=== PATIENT | male | born 1935 | race Caucasian/White ===

== ENCOUNTER → 2017-09-11 | Outpatient (CLI) | payer MEDICARE, OTHER ==
[~2017-09-11] MED LIST: ALLERCLEAR10 MG PO; AMLODIPINE BESYL5 MG PO; ASPIR 8181 MG PO; AVODART0.5 MG PO; CALCIUM 600 +1 EAC1 PO; COLACE 100 MG100 MG PO; COLACE100 MG PO; DULERA 100 MCG/13 GM INH; FISH OIL 1,001000 M1 PO; GABAPENTIN 100100 MG PO; HYDROCODONE-AP1 EAC6 PO; MELOXICAM15 MG PO; MILK OF MA2400 MG/10 PO; MULTIVITAMINS PO; NORCO 5-325 TA1 EACH PO; OMEGA 3-6-9 CO1 EACH PO; ONE DAILY 50 P1 EAC1 PO; PACERONE100 MG PO; PEPCID20 MG PO; PERCOCET 5-3251 EACH PO; PRINIVIL10 MG PO; SIMVASTATIN40 MG PO; SINGULAIR 10 MG10 MG PO
[2017-09-11 13:34] LABS: ANION GAP 9 mmol/L (7-16); BUN 26 mg/dL (7-18); CALCIUM 8.8 mg/dL (8.5-10.1); CHLORIDE 104 mmol/L (98-107); CHOLESTEROL 118 mg/dL (<200); CO2 26 mmol/L (21-32); CREATININE 1.1 mg/dL (0.6-1.3); GLUCOSE 99 mg/dL (70-99); HDL CHOLESTEROL 53 mg/dL (>40); LDL CHOLESTEROL 5 mg/dL (<100); POTASSIUM 4.4 mmol/L (3.5-5.1); SODIUM 139 mmol/L (136-145); TC:HDL 2.2 Ratio (Not establshd); TRIGLYCERIDE 304 mg/dL (<150); VLDL 61 mg/dL (<40)
[2017-09-11 13:41] LABS: SERUM ASSESSMENT Moderate Lipemia
[2017-09-11 21:07] LABS: LDL (DIRECT) CHOL 60 mg/dL (0-99)
== END ==
LOC: M.LAB 13:03
PROVIDERS: Internal Medicine Cardiovascular Disease
DX: I48.91 Unspecified atrial fibrillation (principal); E78.5 Hyperlipidemia, unspecified

== ENCOUNTER 2017-11-08 22:18 | Inpatient (IN) | payer MEDICARE, OTHER ==
[~2017-11-08] VITALS: Ht 182.9 cm; Wt 103.9 kg
[~2017-11-08 22:18] MED LIST changes: -PACERONE100 MG PO; -PEPCID20 MG PO; -PRINIVIL10 MG PO
[2017-11-08 22:20] VITALS: BP 209/95
[2017-11-08] MEDS ORDERED: PACERONE100 MG PO (22:35)
[2017-11-08 23:01] LABS: ABSOLUTE BASOPHILS 0.1 thou/uL (0.0-0.2); ABSOLUTE EOSINOPHILS 0.2 thou/uL (0.0-0.7); ABSOLUTE LYMPHOCYTES 2.9 thou/uL (0.8-5.3); ABSOLUTE NEUTROPHILS 4.5 thou/uL (1.6-8.1); BASOPHILS 0.6 %; EOSINOPHILS 2.4 %; HEMATOCRIT 48.2 % (42.0-52.0); HEMOGLOBIN 16.1 gm/dL (14.0-18.0); LYMPHOCYTES 33.5 %; MCH 29.5 pg (26.0-34.0); MCHC 33.4 g/dL (28.0-37.0); MCV 88.2 fL (80.0-100.0); MPV 8.3 fl. (7.2-11.1); NUCLEATED RBCS 0 /100WBC; PLATELET COUNT* 182 thou/uL (150-400); POLYS 52.5 %; RBC 5.46 mil/uL (4.50-6.00); RDW-CV 14.4 % (10.5-14.5); WBC 8.6 thou/uL (4.0-11.0)
[2017-11-08 23:14] LABS: ANION GAP 4 mmol/L (7-16); BUN 21 mg/dL (7-18); CALCIUM 9.1 mg/dL (8.5-10.1); CHLORIDE 104 mmol/L (98-107); CO2 28 mmol/L (21-32); CREATININE 1.2 mg/dL (0.6-1.3); GLUCOSE 113 mg/dL (70-99); POTASSIUM 4.7 mmol/L (3.5-5.1); SODIUM 136 mmol/L (136-145)
[2017-11-08 23:17] LABS: INR 1.1; PROTIME 10.5 Seconds (9.20-11.50)
[2017-11-08 23:25] LABS: ALBUMIN 3.3 g/dL (3.4-5.0); ALKALINE PHOSPHATASE 93 U/L (46-116); LIPASE 98 U/L (73-393); NT-PRO BRAIN NAT PEPTIDE 242 pg/mL (<300); SGOT 20 U/L (15-37); SGPT 36 U/L (30-65); TOTAL BILIRUBIN 0.9 mg/dL (<0.1-1.0); TOTAL PROTEIN 6.8 g/dL (6.4-8.2); TROPONIN-I LEVEL <0.06 ng/mL (<0.06)
[2017-11-09] VITALS (7 sets, daily range): BP systolic 136–176; BP diastolic 65–86
--- NOTE | 2017-11-09 18:38 | EXE ---
[place] [address] STRESS ECHOCARDIOGRAM Name: SONAL GRIFFITH Room: [address]#: [id number] Admission: 11/08/17 Attend Phys: Cole Amaral, Discharge: Date of : 39 Date of Service: 11/09/17 1837 Report #: [id number] THIS REPORT FOR: //name// APPROVED REPORT Study performed: 11/09/2017 15:26:16 Exam: Dobutamine Stress Echo Indication: Chest pain , CAD ,CABG Patient Location: In-Patient Stress Nurse: Angie Shelton RN Room #: [facility] Supervising Physician: John Hendricks MD Status: routine Ht: 6 ft 0 in HR: 51 bpm BP: 140/72 mmHg Medical History Cardiac Risk Factors: Hyperlipidemia, HTN,PVD Procedure The patient underwent a Pharmacological Stress Test using Dobutamine. Blood pressure, heart rate, and EKG were monitored. An Echocardiogram was performed by urgent care technician in four stages in quad fashion. At peak stress, four selected images were obtained and placed side by side with resting images for comparison. Stress Test Details Stress Test: Pharmacological Stress Test using Dobutamine. Reason for pharmacologic stress test: physical limitation. HR Resting HR: 51 bpm Max Heart Rate (APMHR): 141 bpm Max HR Achieved: 141 bpm Target HR (85% APMHR): 119 bpm % of APMHR: 100 Recovery HR: 98 bpm HR response to stress: Normal HR response to stress BP Resting BP: 140/72 mmHg Max BP: 191/60 mmHg Recovery BP: 154/73 [place] [address] STRESS ECHOCARDIOGRAM Name: SONAL GRIFFITH Room: [address]#: [id number] Admission: 11/08/17 Attend Phys: Cole Amaral, Discharge: Date of : 39 Date of Service: 11/09/171836 Report #: [id number] Pre-Stress Echo The resting Echocardiogram showed normal left ventricular contractility with an estimated Ejection Fraction of about 55-60%. Normal wall motion in all segments on baseline images. Post-Stress Echo The stress Echocardiogram showed normal left ventricular contractility with an estimated Ejection Fraction of about >70%. Normal augmentation of wall motion in all segments on post stress images. Conclusion Clinical Response: Non-ischemic Stress ECG Response: Non-ischemic Stress Echo Images: Non-ischemic Other Information Study Quality: Good <ELECTRONICALLY SIGNED> By: John Hendricks MD, [facility] 11/09/171836 36 1837 John Hendricks MD, FACC /INF
[2017-11-10] VITALS: BP 151/73
[2017-11-10 04:00] VITALS: BP 154/65
[2017-11-10 08:00] VITALS: BP 155/81
[2017-11-10] MEDS ORDERED: PRINIVIL10 MG PO (11:05)
[2017-11-10] MEDS ORDERED: PEPCID20 MG PO (11:33)
[2017-11-10 11:42] VITALS: BP 155/81
[2017-11-10 12:42] VITALS: BP 155/81
--- NOTE | 2017-11-10 13:32 | EKG ---
[place] [address] ELECTROCARDIOGRAM REPORT Name: SONAL GRIFFITH Room: [address] IN [facility]#: [id number] Admission: 11/08/17 Attend Phys: Cole Amaral MD Discharge: Date of : 39 Report #: [id number] THIS REPORT FOR: //name// [facility] ED Test Date: 2017-11-08 Test Time: 22:24:24 Pat Name: SONAL GRIFFITH Department: Room: Gender: Special Delivery Mail Carrier: DAYANMT. [facility] : 1935 Requested By: Brayan Peters Order Number: [id number] MD: Ken Del Rosario Measurements Intervals [place] Rate: 61 P: 57 CT: 192 QRS: 84 QRSD: 108 T: 10 QT: 467 QTc: 471 Interpretive Statements Sinus rhythm Ventricular premature complex Consider right ventricular hypertrophy Compared to ECG 08/04/2013 08:36:20 ST (T wave) deviation no longer present Electronically Signed On 11-10-2017 13:32:12 CDT by Ken Del Rosario [email or web address] <ELECTRONICALLY SIGNED> By: Ken Del Rosario MD, FACC 11/10/17 1332 2224 2224 Ken Del Rosario MD, [facility] /EPI
--- NOTE | 2017-11-10 13:36 | EKG ---
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: : 1935 Requested By: Cole Amaral Order Number: [id number] Reading MD: Ken Del Rosario Measurements Intervals [place] Rate: 50 P: -14 NV: 216 QRS: 89 QRSD: 107 T: 16 QT: 510 QTc: 466 Interpretive Statements Sinus rhythm Borderline prolonged NV interval Borderline right axis deviation Borderline T abnormalities, inferior leads Compared to ECG 08/04/2013 08:36:20 T-wave abnormality now present Ventricular premature complex(es) no longer present ST (T wave) deviation no longer present Electronically Signed On 11-10-2017 13:36:18 CDT by Ken Del Rosario [email or web address] <ELECTRONICALLY SIGNED> By: Ken Del Rosario MD, FAC 11/10/17 1336 0633 0633 Ken Del Rosario MD, FAC /EPI
== END 2017-11-10 13:30 | disposition home or self-care (01) | DRG 392 ==
LOC: M.ERS 22:18 → M.2W 23:33 → M.TBA-ER 23:33 → M.2W 11-09 00:10
PROVIDERS: Emergency Medicine; ADMIT Internal Medicine
DX: K21.9 Gastro-esophageal reflux disease without esophagitis (principal); I16.1 Hypertensive emergency; R07.9 Chest pain, unspecified; I10 Essential (primary) hypertension; J44.9 Chronic obstructive pulmonary disease, unspecified; H91.90 Unspecified hearing loss, unspecified ear; Z96.643 Presence of artificial hip joint, bilateral; Z96.611 Presence of right artificial shoulder joint; Z95.2 Presence of prosthetic heart valve; Z87.891 Personal history of nicotine dependence; Z79.899 Other long term (current) drug therapy

== ENCOUNTER → 2019-11-02 | Outpatient (CLI) | payer MEDICARE, OTHER ==
[~2019-11-02] MED LIST changes: +PACERONE100 MG PO; +PEPCID20 MG PO; +PRINIVIL10 MG PO
== END ==
LOC: M.WC 03:25
PROVIDERS: ATTEND Surgery
DX: L97.212 Non-pressure chronic ulcer of right calf with fat layer exposed (principal); I89.0 Lymphedema, not elsewhere classified; I48.20 Chronic atrial fibrillation, unspecified; I10 Essential (primary) hypertension; I87.8 Other specified disorders of veins; G62.9 Polyneuropathy, unspecified; E66.9 Obesity, unspecified; J44.9 Chronic obstructive pulmonary disease, unspecified; Z95.4 Presence of other heart-valve replacement; Z87.891 Personal history of nicotine dependence; Z68.29 Body mass index [BMI] 29.0-29.9, adult

== ENCOUNTER → 2019-11-09 | Outpatient (CLI) | payer MEDICARE, OTHER | LOC: M.WC 04:56 | PROVIDERS: ATTEND Surgery | DX: L97.211 Non-pressure chronic ulcer of right calf limited to breakdown of skin (principal); I89.0 Lymphedema, not elsewhere classified; I87.8 Other specified disorders of veins; I48.20 Chronic atrial fibrillation, unspecified; I10 Essential (primary) hypertension; G62.9 Polyneuropathy, unspecified; E66.9 Obesity, unspecified; J44.9 Chronic obstructive pulmonary disease, unspecified; Z87.891 Personal history of nicotine dependence; Z68.29 Body mass index [BMI] 29.0-29.9, adult ==

== ENCOUNTER → 2019-11-16 | Outpatient (CLI) | payer MEDICARE, OTHER | LOC: M.WC 03:24 | PROVIDERS: ATTEND Surgery | DX: L97.211 Non-pressure chronic ulcer of right calf limited to breakdown of skin (principal); L97.821 Non-pressure chronic ulcer of other part of left lower leg limited to breakdown of skin; I89.0 Lymphedema, not elsewhere classified; I87.8 Other specified disorders of veins; I48.20 Chronic atrial fibrillation, unspecified; I10 Essential (primary) hypertension; G62.9 Polyneuropathy, unspecified; E66.9 Obesity, unspecified; J44.9 Chronic obstructive pulmonary disease, unspecified; Z87.891 Personal history of nicotine dependence; Z68.29 Body mass index [BMI] 29.0-29.9, adult; Z79.01 Long term (current) use of anticoagulants ==

== ENCOUNTER → 2019-11-23 | Outpatient (CLI) | payer MEDICARE, OTHER | LOC: M.WC 05:11 | PROVIDERS: ATTEND Surgery | DX: L97.211 Non-pressure chronic ulcer of right calf limited to breakdown of skin (principal); L97.821 Non-pressure chronic ulcer of other part of left lower leg limited to breakdown of skin; G62.9 Polyneuropathy, unspecified; E66.9 Obesity, unspecified; I48.91 Unspecified atrial fibrillation; I10 Essential (primary) hypertension; I87.8 Other specified disorders of veins; I89.0 Lymphedema, not elsewhere classified; I48.20 Chronic atrial fibrillation, unspecified; J44.9 Chronic obstructive pulmonary disease, unspecified; Z87.891 Personal history of nicotine dependence; Z79.01 Long term (current) use of anticoagulants; Z68.29 Body mass index [BMI] 29.0-29.9, adult ==

== ENCOUNTER → 2019-11-30 | Outpatient (CLI) | payer MEDICARE, OTHER | LOC: M.WC 08:59 | PROVIDERS: ATTEND Surgery | DX: L97.218 Non-pressure chronic ulcer of right calf with other specified severity (principal); I89.0 Lymphedema, not elsewhere classified; I48.20 Chronic atrial fibrillation, unspecified; I10 Essential (primary) hypertension; I87.8 Other specified disorders of veins; E66.9 Obesity, unspecified; G62.9 Polyneuropathy, unspecified; J44.9 Chronic obstructive pulmonary disease, unspecified; Z87.891 Personal history of nicotine dependence; Z79.01 Long term (current) use of anticoagulants; Z68.29 Body mass index [BMI] 29.0-29.9, adult ==

== ENCOUNTER 2021-02-11 11:00 | Emergency (ER) | payer MEDICARE, OTHER ==
[~2021-02-11] VITALS: Ht 182.9 cm; Wt 103.9 kg
[2021-02-11] MEDS ORDERED: MELOXICAM15 MG PO (11:15)
[2021-02-11] MEDS ORDERED: FUROSEMIDE 40 M40 MG PO (11:15)
[2021-02-11] MEDS ORDERED: ATORVASTATIN CA80 MG PO (11:15)
[2021-02-11] MEDS ORDERED: ELIQUIS5 MG PO (11:15)
[2021-02-11] MEDS ORDERED: TRELEGY ELLIPT1 EACH INH (11:16)
[2021-02-11 13:17] VITALS: BP 135/59
== END 2021-02-11 13:18 | disposition home or self-care (01) ==
LOC: M.ERS 11:00
DX: M25.552 Pain in left hip (principal); J44.9 Chronic obstructive pulmonary disease, unspecified; I10 Essential (primary) hypertension; Z79.899 Other long term (current) drug therapy; Z87.891 Personal history of nicotine dependence; Z96.643 Presence of artificial hip joint, bilateral

== ENCOUNTER 2021-04-07 05:43 | Inpatient (IN) | payer MEDICARE, OTHER ==
[~2021-04-07] VITALS: Ht 180.3 cm; Wt 105.0 kg
[2021-04-07] VITALS (7 sets, daily range): BP systolic 120–190; BP diastolic 50–78
[~2021-04-07 05:43] MED LIST changes: +ATORVASTATIN CA80 MG PO; +ELIQUIS5 MG PO; +FUROSEMIDE 40 M40 MG PO; +TRELEGY ELLIPT1 EACH INH
[2021-04-07 06:15] LABS: ABSOLUTE EOSINOPHILS 0.1 thou/uL (0.0-0.7); ABSOLUTE LYMPHOCYTES 1.2 thou/uL (0.8-5.3); ABSOLUTE MONOCYTES 1.5 thou/uL (0.0-1.2); ABSOLUTE NEUTROPHILS 7.1 thou/uL (1.6-8.1); BASOPHILS 0.5 %; EOSINOPHILS 1.4 %; HEMATOCRIT 41.1 % (42.0-52.0); HEMOGLOBIN 13.8 gm/dL (14.0-18.0); MCH 29.7 pg (26.0-34.0); MCHC 33.6 g/dL (28.0-37.0); MCV 88.6 fL (80.0-100.0); MONOCYTES 14.6 %; MPV 7.6 fl. (7.2-11.1); NUCLEATED RBCS 0 /100WBC; PLATELET COUNT* 234 thou/uL (150-400); POLYS 71.5 %; RBC 4.64 mil/uL (4.50-6.00); RDW-CV 14.8 % (10.5-14.5)
[2021-04-07 06:23] LABS: CALCIUM 9.1 mg/dL (8.5-10.1); CREATININE 1.4 mg/dL (0.6-1.3)
[2021-04-07 11:01] LABS: URINE BILIRUBIN NEGATIVE (Negative); URINE BLOOD 2+ (Negative); URINE CLARITY SL CLOUDY; URINE COLOR YELLOW; URINE GLUCOSE-RANDOM NEGATIVE (Negative); URINE KETONES NEGATIVE (Negative); URINE PROTEIN 1+ (Negative); URINE UROBILINOGEN 0.2 E.U./dl (0.2-1.0)
[2021-04-07 11:02] LABS: URINE LEUKOCYTES-REFLEX 2+ (Negative); URINE NITRITE-REFLEX POSITIVE (Negative)
[2021-04-07 11:19] LABS: CASTS None Seen /LPF (None Seen); SQUAMOUS 0-3 Few /LPF (0-3); URINE RBC >20 Many /HPF (0-2); URINE WBC-REFLEX >25 Many /HPF (0-5)
[2021-04-07 11:21] LABS: CRYSTALS None Seen /LPF (None Seen)
--- NOTE | 2021-04-07 13:58 | EKG ---
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 : 1935 Requested By: Saida Abel Order Number: [id number] Reading MD: Andrew Parker Measurements Intervals [place] Rate: 77 P: 65 MD: 220 QRS: 84 QRSD: 122 T: 40 QT: 531 QTc: 602 Interpretive Statements Sinus rhythm Atrial premature complexes Prolonged MD interval Borderline intraventricular conduction delay Borderline T abnormalities, anterior leads Compared to ECG 11/09/2017 06:33:49 Atrial premature complex(es) now present Intraventricular conduction delay now present T-wave abnormality still present Electronically Signed On 04-07-2021 13:57:50 [employer] by Andrew Parker [email or web address] <ELECTRONICALLY SIGNED> By: Andrew Parker MD, FACC 04/07/21 1357 1043 1043 Andrew Parker MD, FAC /EPI
[2021-04-08] VITALS: BP 114/62
[2021-04-08 04:00] VITALS: BP 142/61
[2021-04-08 04:49] LABS: HEMATOCRIT 38.6 % (42.0-52.0); HEMOGLOBIN 12.8 gm/dL (14.0-18.0); MCH 29.6 pg (26.0-34.0); MCHC 33.2 g/dL (28.0-37.0); MCV 89.3 fL (80.0-100.0); MPV 8.3 fl. (7.2-11.1); RBC 4.32 mil/uL (4.50-6.00); RDW-CV 15.3 % (10.5-14.5); WBC 9.9 thou/uL (4.0-11.0)
[2021-04-08 04:57] LABS: ALBUMIN 2.1 g/dL (3.4-5.0); CALCIUM 8.9 mg/dL (8.5-10.1); CREATININE 1.4 mg/dL (0.6-1.3); MAGNESIUM 2.2 mg/dL (1.8-2.4); POTASSIUM 3.6 mmol/L (3.5-5.1); TOTAL BILIRUBIN 1.1 mg/dL (<0.1-1.0)
[2021-04-08 04:58] LABS: APTT 31.4 Seconds (25.0-31.3); PROTIME 10.7 Seconds (9.20-11.50)
[2021-04-08 08:00] VITALS: BP 124/75
[2021-04-08 11:30] VITALS: BP 124/61
[2021-04-08 20:20] VITALS: BP 128/62
[2021-04-09 05:23] LABS: HEMATOCRIT 37.1 % (42.0-52.0); HEMOGLOBIN 12.6 gm/dL (14.0-18.0); MCH 29.8 pg (26.0-34.0); MCHC 33.8 g/dL (28.0-37.0); MPV 8.3 fl. (7.2-11.1); RBC 4.22 mil/uL (4.50-6.00); RDW-CV 14.8 % (10.5-14.5); WBC 9.7 thou/uL (4.0-11.0)
[2021-04-09 05:34] LABS: APTT 28.8 Seconds (25.0-31.3); PROTIME 10.6 Seconds (9.20-11.50)
[2021-04-09 05:42] LABS: ALBUMIN 2.1 g/dL (3.4-5.0); CALCIUM 8.5 mg/dL (8.5-10.1); CREATININE 1.3 mg/dL (0.6-1.3); MAGNESIUM 2.2 mg/dL (1.8-2.4); POTASSIUM 3.4 mmol/L (3.5-5.1); TOTAL PROTEIN 6.2 g/dL (6.4-8.2)
[2021-04-09 08:00] VITALS: BP 148/70
[2021-04-09 15:53] VITALS: BP 139/60
[2021-04-09 20:20] VITALS: BP 134/60
[2021-04-10 06:43] LABS: HEMATOCRIT 39.4 % (42.0-52.0); HEMOGLOBIN 13.2 gm/dL (14.0-18.0); MCH 29.4 pg (26.0-34.0); MCHC 33.6 g/dL (28.0-37.0); MCV 87.6 fL (80.0-100.0); RBC 4.5 mil/uL (4.50-6.00); RDW-CV 14.7 % (10.5-14.5); WBC 9.2 thou/uL (4.0-11.0)
[2021-04-10 07:15] VITALS: BP 165/76
[2021-04-10 07:23] LABS: CALCIUM 8.6 mg/dL (8.5-10.1); CREATININE 1.2 mg/dL (0.6-1.3); POTASSIUM 3.6 mmol/L (3.5-5.1)
[2021-04-10 07:45] VITALS: BP 164/59
[2021-04-10 09:19] VITALS: BP 115/58
[2021-04-10 12:07] VITALS: BP 128/47
--- NOTE | 2021-04-10 13:20 | EKG ---
[place] [address] ELECTROCARDIOGRAM REPORT Name: SONAL GRIFFITH Room: [address] ADM IN [facility].#: [id number] Admission: 04/07/21 Attend Phys: Saida Abel, Discharge: Date of : 39 Date of Service: 04/10/21 0629 Report #: [id number] THIS REPORT FOR: //name// [facility] Test Date: 2021-04-10 Test Time: 06:29:53 Pat Name: SONAL GRIFFITH Department: Room: [address] Gender: M Regulated Program Manager: KIESHA : 1935 Requested By: Saida Abel Order Number: [id number] Reading MD: Rip Zuñiga Measurements Intervals [place] Rate: 59 P: 52 WI: 196 QRS: 84 QRSD: 111 T: 28 QT: 636 QTc: 631 Interpretive Statements Sinus arrhythmia Borderline right axis deviation Borderline T abnormalities, inferior leads Prolonged QT interval Baseline wander in lead(s) I,II,aVR Compared to ECG 04/07/2021 10:43:09 Prolonged QT interval now present First degree AV block no longer present T-wave abnormality still present Electronically Signed On 04-10-2021 13:20:35 CARD HAND by Rip Zuñiga [email or web address] <ELECTRONICALLY SIGNED> By: Rip Zuñiga MD, [facility] 04/10/21 1320 0629 Rip Zuñiga MD, [facility] /EPI
[2021-04-10 15:43] VITALS: BP 130/51
[2021-04-10 20:00] VITALS: BP 144/64
[2021-04-11 00:22] VITALS: BP 101/47
[2021-04-11 04:08] VITALS: BP 117/64
[2021-04-11 08:00] VITALS: BP 135/63
[2021-04-11 11:38] VITALS: BP 123/58
[2021-04-11 15:48] VITALS: BP 113/58
[2021-04-11 20:50] VITALS: BP 137/59
[2021-04-12 08:16] VITALS: BP 127/55
[2021-04-12 08:58] VITALS: BP 127/55
[2021-04-12] MEDS ORDERED: MACROBID 100 M100 M1 PO (13:18)
[2021-04-12] MEDS ORDERED: ELIQUIS5 MG PO (13:18)
== END 2021-04-12 18:37 | DRG 516 ==
LOC: M.ERS 05:43 → M.ORTHSURG 07:31 → M.TBA-ER 07:31 → M.3W 07:31 → M.TBA-ER 13:46 → M.ORTHSURG 18:05 → M.3W 04-08 16:21
PROVIDERS: Emergency Medicine; Internal Medicine; ADMIT Internal Medicine; ATTEND Internal Medicine
PROC: 0QS03ZZ Reposition Lumbar Vertebra, Percutaneous Approach (ICD-10-PCS; principal; 2021-04-10)
PROC: 0QU03JZ Supplement Lumbar Vertebra with Synthetic Substitute, Percutaneous Approach (ICD-10-PCS; principal; 2021-04-10)
DX: S32.049A Unspecified fracture of fourth lumbar vertebra, initial encounter for closed fracture (principal); N17.9 Acute kidney failure, unspecified; N39.0 Urinary tract infection, site not specified; I48.20 Chronic atrial fibrillation, unspecified; E11.21 Type 2 diabetes mellitus with diabetic nephropathy; Z96.643 Presence of artificial hip joint, bilateral; Z96.611 Presence of right artificial shoulder joint; J44.9 Chronic obstructive pulmonary disease, unspecified; G89.29 Other chronic pain; M54.50 Low back pain, unspecified; B96.89 Other specified bacterial agents as the cause of diseases classified elsewhere; E11.22 Type 2 diabetes mellitus with diabetic chronic kidney disease; M19.90 Unspecified osteoarthritis, unspecified site; I12.9 Hypertensive chronic kidney disease with stage 1 through stage 4 chronic kidney disease, or unspecified chronic kidney disease; Z20.822 Contact with and (suspected) exposure to COVID-19; N18.30 Chronic kidney disease, stage 3 unspecified; Z95.2 Presence of prosthetic heart valve; Z87.891 Personal history of nicotine dependence; W18.39XA Other fall on same level, initial encounter; Y93.89 Activity, other specified; Y92.89 Other specified places as the place of occurrence of the external cause; Y99.8 Other external cause status

== ENCOUNTER 2021-04-12 15:11 | Inpatient (IN) | payer MEDICARE, OTHER ==
[~2021-04-12] VITALS: Ht 180.3 cm; Wt 100.3 kg
[~2021-04-12 15:11] MED LIST changes: +MACROBID 100 M100 M1 PO
[2021-04-12 19:15] VITALS: BP 125/55
--- NOTE | 2021-04-12 20:55 | NUR ---
AWAKENED TO COMPLETE REHAB ADMISSION. PATIENT ALERT AND ORIENTED X 4. VERY HARD OF HEARING. HEARING AIDS CHARGING. VOIDED YELLOW URINE PER URINAL. CALL LIGHT WITHIN REACH. DENIES PAIN. WHEN WOKE PATIENT UP HE BECAME SHORT OF BREATH AND HAD PRONOUNCED AUDIBLE WHEEZES WHICH EVENTUALLY SUBSIDED.
[2021-04-13 04:04] LABS: HEMATOCRIT 37.5 % (42.0-52.0); HEMOGLOBIN 12.6 gm/dL (14.0-18.0); MCH 29.6 pg (26.0-34.0); MCHC 33.6 g/dL (28.0-37.0); MCV 88.2 fL (80.0-100.0); MPV 7.9 fl. (7.2-11.1); RBC 4.25 mil/uL (4.50-6.00); RDW-CV 14.7 % (10.5-14.5); WBC 9.4 thou/uL (4.0-11.0)
[2021-04-13 04:33] LABS: CALCIUM 8.8 mg/dL (8.5-10.1); CREATININE 1.4 mg/dL (0.6-1.3); POTASSIUM 3.7 mmol/L (3.5-5.1)
--- NOTE | 2021-04-13 04:56 | NUR ---
RESTED ON/OFF. ASKED FOR SOMETHING STRONGER THAN TYLENOL FOR COMPLAINT OF BACK PAIN. OBTAINED AN ORDER FOR HYDROCODONE. WENT TO ASK PATIENT IF HE STILL WANTED A PAIN PILL AND HE WAS SLEEPING SOUNDLY. USED URINAL DURING THE NIGHT. HOURLY ROUNDING IN PROGRESS.
[2021-04-13 08:02] VITALS: BP 144/61
--- NOTE | 2021-04-13 17:32 | NUR ---
PT UP WITH GAIT BELT AND WALKER AND X1 ASST. PT COMPLETED ALL THERAPY. PT IS ON 2L 02.PT DOES HAVE PROC COUGH. PT HAS RT SCAB ON ELBOW AND RT SKIN TEAR ON FOREARM WITH STERI STRIPS, RT SIDE SORE ON BUTTOCK. PT TAKES PAIN MED FOR PAIN. PT HAD ARTERIAL DOPPLER TODAY ORDERED BY DR HUSSEIN, TEST WAS NEG. PT IS RESTING IN BED WATCHING TV WITH CALL LIGHT IN REACH AND FALL PRECAUTIONS IN PLACE.
[2021-04-13 20:00] VITALS: BP 109/56
--- NOTE | 2021-04-14 04:58 | NUR ---
ASSUMED PT CARE AT 1930. PT ALERT AND ORIENTED X4, POLITE AND COOPERATIVE WITH CARES. PT RESTING IN BED AT SHIFT CHANGE. WEARING 2L 02 PER NC. SCAB TO RIGHT ELBOW, STERISTRIPS TO RT FOREARM SKIN TEAR INTACT. DRESSING TO RIGHT BUTTOCK C/D/I. PRN PAIN MEDICATION X1 PER PT REQUEST. TAKES PILLS WHOLE WITH WATER WITHOUT DIFFICULTY. USED URINAL OVERNIGHT. CALL LIGHT IN REACH, BED ALARM ON FOR SAFETY. HOURLY ROUNDING IN PROGRESS, WILL CONTINUE TO MONITOR.
[2021-04-14 07:54] VITALS: BP 110/64
--- NOTE | 2021-04-14 17:02 | NUR ---
PT UP WITH GAIT BELT AND WALKER AND 1X ASST. PT IS ON 2L 02. PT HAD CHEST X-RAY DUE TO WHEEZING, NEG FOR PNEUMONIA. PT ORDERED MUCINEX BID BY DR ROSE. PT TAKES PAIN MEDS FOR BACK PAIN. PT HAD BM THIS SHIFT. PT IS RESTING IN BED WATCHING TV WITH CALL LIGHT IN REACH AND FALL PRECAUTIONS IN PLACE.
[2021-04-14 19:32] VITALS: BP 136/69
--- NOTE | 2021-04-14 19:35 | NUR ---
SLEEPING QUIETLY IN BED. OXYGEN NASAL CANNULA AT TWO LITERS. OXYGEN SATURATION 96%. URINAL AND CALL LIGHT WITHIN REACH.
--- NOTE | 2021-04-15 05:20 | NUR ---
RESTED QUIETLY. USED URINAL DURING THE NIGHT. CURRENTLY SITTING UP IN BED WATCHING THE MORNING LOCAL NEWS. HOURY ROUNDING IN PROGRESS.
[2021-04-15 08:20] VITALS: BP 154/68
--- NOTE | 2021-04-15 09:55 | NUR ---
Nutrition: Pt admitted to rehab with L4 compression FX. H/o COPD, afib, HTN, arthritis. Alb 2.1, prealb 16.5. Wt variable, will use current wt to calculate any needs. Regular diet. Spoke with RN, pt eating well. Low risk.
--- NOTE | 2021-04-15 17:09 | NUR ---
ALERT AND ORIENTED X4. UP WITH 1 ASSIST, GAIT BELT AND WALKER. DENIES PAIN. CONTINENT OF BOWEL AND BLADDER. HAS DRY AND INTACT DRESSING ON RIGHT BUTTOCK. STERI STRIPS IN PLACE OVER RIGHT ARM SKIN TEAR. REMAINS ON O2 AT 2L/NC TO KEEP O2 SATS IN 90'S. USES CALL LIGHT FOR ASSIST. FALL PRECAUTIONS IN PLACE. TAKES PILLS WITHOUT DIFFICULTY.
[2021-04-15 19:00] VITALS: BP 94/70
--- NOTE | 2021-04-16 05:12 | NUR ---
ASSUMED PT CARE AT 1930. PT ALERT AND ORIENTED X4, POLITE AND COOPERATIVE WITH CARES. PT ALREADY IN BED AT SHIFT CHANGE. DENIES PAIN. VERY [place]. TAKES PILLS WHOLE WITH WATER WITHOUT DIFFICULTY. PRN PAIN MEDICATION AT HS. USED URINAL OVERNIGHT. CALL LIGHT IN REACH, BED ALARM ON FOR SAFETY. HOURLY ROUNDING IN PROGRESS, WILL CONTINUE TO MONITOR.
[2021-04-16 08:08] VITALS: BP 167/71
--- NOTE | 2021-04-16 16:36 | NUR ---
PATIENT COMPLETED THERAPIES THIS SHIFT ORDERED. UP WITH ASSISTANCE; GAIT BELT AND WALKER, [address] PRN HYDROCODONE GIVEN X 2 FOR BACK PAIN. VOIDING PER URINAL. TEAM MEETING TOMORROW, AM LABS.
--- NOTE | 2021-04-16 16:36 | NUR ---
INITIAL ASSESSMENT: PATIENT ADMITTED TO [facility] ON 04/12/21 WITH A DIAGNOSIS OF L4 COMPRESSION FX. PRIOR TO ADMIT PT RESIDED AT HOME ALONE. PT USED A WALKER FOR MOBILITY, BUT ALSO OWNED A CANE. PT HAS PAST HX OF HH. PT ALSO HAS PAST HX OF SNF AT [facility]. PT'S DTR INFORMS THAT THE PT'S HOME HAS STEPS TO THE BASEMENT. PT'S DTE INFORMS THAT SHE HAS PURCHASED A LIFT CHAIR AND IT WILL BE DELIVERED TO THE HOME NEXT WEEK. CM ORIENTED THE PT AND HIS DTR TO THE [facility] AND PROCESSES, RESIDENTS RIGHTS INFO, TEAM CONFRENCE, AND TO THE ROLE OF CM. CM WILL REMAIN AVAILABLE TO ASSIST AND FOLLOW NEEDED.
[2021-04-16 19:00] VITALS: BP 146/67
[2021-04-17 04:50] LABS: HEMATOCRIT 37.5 % (42.0-52.0); HEMOGLOBIN 12.6 gm/dL (14.0-18.0); MCH 29.5 pg (26.0-34.0); MCHC 33.6 g/dL (28.0-37.0); MCV 87.7 fL (80.0-100.0); MPV 7.7 fl. (7.2-11.1); RBC 4.28 mil/uL (4.50-6.00); RDW-CV 14.7 % (10.5-14.5); WBC 13.2 thou/uL (4.0-11.0)
[2021-04-17 04:56] LABS: CALCIUM 8.6 mg/dL (8.5-10.1); CREATININE 1.3 mg/dL (0.6-1.3); POTASSIUM 3.5 mmol/L (3.5-5.1)
--- NOTE | 2021-04-17 05:45 | NUR ---
ASSUMED CARES AT 1920. ALERT AND ORIENTED. PLEASANT. O2 2L NC. USED URINAL. SLEPT OFF AND ON. CALL LIGHT IN REACH AND BED ALARM ON.
[2021-04-17 07:42] VITALS: BP 142/65
--- NOTE | 2021-04-17 17:03 | NUR ---
PATIENT COMPLETED THERAPIES THIS SHIFT ORDERED. UP WITH ASSISTANCE; GAIT BELT AND WALKER/02. DR. GUILLEN NOTIFIED OF ELEVATED WBC, CXR ORDERED AND AWAITING TO BE DONE AND LAB FOR AM. PRN VICODIN GIVEN FOR BACK PAIN X [address] LIDOCAINE PATCH IN PLACE TO LEFT RIBS. DRESSING REPLACED TO RIGHT BUTTOCK.
[2021-04-17 20:00] VITALS: BP 161/81
--- NOTE | 2021-04-18 06:08 | NUR ---
ASSUMED CARE AT 1920. ALERT AND ORIENTED. PLEASANT. NORCO GIVEN NEEDED FOR LEFT RIB PAIN. O2 2L NC. MIN ASSIST WITH GAIT BELT AND WALKER. UP TO BR OR USED URINAL. SLEPT MOST OF THE NIGHT. CALL LIGHT IN REACH AND BED ALARM ON.
[2021-04-18 07:54] VITALS: BP 150/71
[2021-04-18 12:35] LABS: URINE BILIRUBIN NEGATIVE (Negative); URINE BLOOD NEGATIVE (Negative); URINE CLARITY CLEAR; URINE COLOR YELLOW; URINE GLUCOSE-RANDOM NEGATIVE (Negative); URINE KETONES NEGATIVE (Negative); URINE LEUKOCYTES-REFLEX NEGATIVE (Negative); URINE NITRITE-REFLEX NEGATIVE (Negative); URINE PROTEIN NEGATIVE (Negative); URINE UROBILINOGEN 0.2 E.U./dl (0.2-1.0)
--- NOTE | 2021-04-18 17:48 | NUR ---
PT UP WITH GAIT BELT AND WALKER WITH SBA. PT COMPLETED ALL THERAPY . PT IS ON 2L 02. UA WAS ORDERED AND SENT. PT TAKES PAIN MEDS FOR PAIN,ONLY TAKEN ONCE THIS SHIFT. PT IS RESTING IN CHAIR WITH CALL LIGHT IN REACH AND FALL PRECAUTIONS IN PLACE.
--- NOTE | 2021-04-18 19:45 | NUR ---
SITTING UP IN RECLINER WATCHING [employer] FOOT[employer] GAME. PAIN MEDICINE GIVEN FOR COMPLAINT OF LEFT RIB PAIN. 02 NASAL CANNULA AT TWO LITERS. CALL LIGHT AND URINAL WITHIN REACH.
[2021-04-18 19:55] VITALS: BP 138/75
--- NOTE | 2021-04-19 05:33 | NUR ---
RESTED QUIETLY AFTER THE CHIEFS GAME AND A SECOND PAIN PILL. HOURLY ROUNDING IN PROGRESS. USED URINAL DURING THE NIGHT.
[2021-04-19 07:36] VITALS: BP 151/65
--- NOTE | 2021-04-19 17:00 | NUR ---
TEAM CONFRENCE MEETING HELD THIS WEEK. PLAN TO RE-TEAM AND HAVE THE PT REMAIN ON THE UNIT FOR ANOTHER WEEK TO CONTINUE THERAPIES. PT AND FAMILY INFORMED AND IN AGREEMENT. PT PROGRESSING WELL TOWARDS GOALS. CM WILL REMAIN AVAILABLE TO ASSIST AND FOLLOW NEEDED
[2021-04-19 21:03] VITALS: BP 145/73
--- NOTE | 2021-04-20 01:23 | NUR ---
ASSUMED CARE AT 1930. RESTING IN RECLINER UNTIL HS. TAKES PILLS WHOLE WITH WATER. MEDICATED FOR PAIN AT HS. O2 2L/NC. HAS LOOSE SOUNDING COUGH, ON MUCINEX DM. SKIN TEAR TO RT FA INTACT WITH STERISTRIPS. TURNS SELF. HOURLY ROUNDS CONTINUE. CALL LITE IN REACH. BED ALARM ON.
[2021-04-20 04:47] LABS: HEMOGLOBIN 12.3 gm/dL (14.0-18.0); MCH 28.8 pg (26.0-34.0); MCHC 33.1 g/dL (28.0-37.0); MCV 87.1 fL (80.0-100.0); MPV 8.4 fl. (7.2-11.1); RBC 4.25 mil/uL (4.50-6.00); RDW-CV 14.5 % (10.5-14.5); WBC 14.5 thou/uL (4.0-11.0)
--- NOTE | 2021-04-20 05:51 | NUR ---
SLEPT NUCH OF THE NIGHT. VOIDED PER URINAL. NO C/O PAIN. HOURLY ROUNDS CONTINUE. BED ALARM ON. CALL LITE IN REACH.
[2021-04-20 07:54] VITALS: BP 139/68
--- NOTE | 2021-04-20 18:14 | NUR ---
PATIENT DID NOT HAVE THERAPIES THIS SHIFT. UP WITH ASSISTANCE; GAIT BELT/WALKER/02. PRN HYDROCODONE GIVEN X 1 THIS SHIFT. BM NOTED X 1, VOIDING PER TOILET. DRESSING TO RIGHT BUTTOCK CHANGED AND PHOTO TAKEN PER PROTOCOL.
[2021-04-20 19:00] VITALS: BP 129/51
--- NOTE | 2021-04-21 05:42 | NUR ---
ASSUMED CARE AT 1930. PATIENT RESTED IN RECLINER UNTIL HS. UP WITH GAIT BELT, WALKER, CGA. O2 2L/NC. MIPILEX DSSG TO BUTTOCKS C/D/I. STERISTRIPS TO FOREARM INTACT. PAIN MED AT HS, SEE MAR. TAKES PILLS WHOLE WITH WATER. VOIDS PER URINAL AT NOC. TURNS SELF. SLEPT WELL. HOURLY ROUNDS CONTIMUE. BED ALARM ON. CALL LITE IN REACH.
[2021-04-21 08:00] VITALS: BP 142/69
--- NOTE | 2021-04-21 16:39 | NUR ---
PATIENT UP WITH ASSISTANCE; GAIT BELT/WALKER/. PATIENT TRIALED ON RA BUT DESATTED TO 87%, PLACED BACK ON 2L NC AND DR. GUILLEN NOTIFIED. RT TREATMENTS CHANGED TO PRN. PRN VICODIN GIVEN X 1 THIS SHIFT FOR BACK PAIN. BM NOTED. DRESSING IN [place] TO RIGHT BUTTOCK, PHOTO TAKEN YESTERDAY.
[2021-04-21 20:00] VITALS: BP 119/58
--- NOTE | 2021-04-21 20:10 | NUR ---
SITTING UP IN RECLINER WATCHING TV. AMBULATED TO THE BATHROOM WITH STAND BY ASSIST GAITBELT WALKER. CALL LIGHT WITHIN REACH. OXYGEN NASAL CANNULA AT TWO LITERS. PAIN PILL GIVEN FOR COMPLAINT OF LEFT RIB PAIN RATED "7".
--- NOTE | 2021-04-22 04:58 | NUR ---
RESTED QUIETLY. NO FURTHER COMPLAINT OF PAIN. USED URINAL DURING THE NIGHT. HOURLY ROUNDING IN PROGRESS.
[2021-04-22 07:37] VITALS: BP 148/72
--- NOTE | 2021-04-22 17:45 | NUR ---
PATIENT RESTING IN RESCLINER, EATING DINNER. 96% ON 2L OXYGEN. C/O RIGHT RIB PAIN, HYDROCODONE X2 GIVEN. SKIN TEAR TO RIGHT FOREARM, BANDAID PLACED TO SITE. NO QUESTIONS OR CONCERNS VOICED.
[2021-04-22 19:00] VITALS: BP 132/56
--- NOTE | 2021-04-22 19:50 | NUR ---
SITTING UP IN RECLINER WATCHING TV. PAIN MEDICINE GIVEN FOR COMPLAINT OF PAIN IN LEFT RIB. AMBULATED TO THE BATHROOM WITH STANDBY GAITBELT WALKER TO VOID. OXYGEN NASAL CANNULA AT TWO LITERS. CALL LIGHT WITHIN REACH.
--- NOTE | 2021-04-23 05:33 | NUR ---
RESTED QUIETLY. USED URINAL DURING THE NIGHT. NO FURTHER COMPLAINT OF PAIN. HOURLY ROUNDING IN PROGRESS.
[2021-04-23 07:28] VITALS: BP 130/73
--- NOTE | 2021-04-23 14:52 | NUR ---
CM SPOKE TO THE PT AND HIS DTR G[place] TO DISCUSS ANY QUESTIONS OR CONCERNS THAT THEY MAY HAVE FOR THIS WEEKS TEAM CONFRENCE MEETING. PT AND DTR BOTH EXPRESSED CONCERN THAT THEY BELIEVE THAT THE PT IS NOT READY TO D/C. CM AND PHYSICIAN TO F/U WITH THE PT AND DTR AFTER THE MEETING TO PROVIDE UPDATE AND INFORM OF THE PLAN. CM WILL REMAIN AVAILABLE TO ASSIST AND FOLLOW NEEDED.
--- NOTE | 2021-04-23 16:32 | NUR ---
PATIENT COMPLETED THERAPIES THIS SHIFT ORDERED. UP WITH ASSISTANCE; GAIT BELT AND WALKER. PATIENT NOW ON RA, SAT 93-94%. RT TREATMENT THIS AM, PRN. PRN VICODINE GIVEN X 2 THIS SHIFT. DRESSING TO RIGHT BUTTOCK REMOVED, WOUND HEALED. BARRIER CREAM APPLIED. VOIDING PER TOILET, BM NOTED THIS SHIFT.
[2021-04-23 19:00] VITALS: BP 117/79
[2021-04-24 04:36] LABS: HEMATOCRIT 36.8 % (42.0-52.0); HEMOGLOBIN 12.4 gm/dL (14.0-18.0); MCH 29.4 pg (26.0-34.0); MCHC 33.6 g/dL (28.0-37.0); MCV 87.4 fL (80.0-100.0); MPV 7.9 fl. (7.2-11.1); RBC 4.21 mil/uL (4.50-6.00); RDW-CV 14.8 % (10.5-14.5); WBC 11.2 thou/uL (4.0-11.0)
[2021-04-24 04:45] LABS: CALCIUM 8.2 mg/dL (8.5-10.1); CREATININE 1.3 mg/dL (0.6-1.3); POTASSIUM 3.4 mmol/L (3.5-5.1)
--- NOTE | 2021-04-24 05:01 | NUR ---
ASSUMED PT CARE AT 1930. PT ALERT AND ORIENTED X4, POLITE AND COOPERATIVE WITH CARES. SITTING UP IN RECLINER AT SHIFT CHANGE WATCHING TELEVISION. UP TO BATHROOM WITH SBA, GAIT BELT AND WALKER TO VOID. EXTREMELY [place]. VICODIN X1 FOR RIB PAIN. 2L 02 PER NC AT HS. PT C/O CONGESTION AND INABILITY TO COUGH UP MUCOUS. CALL LIGHT IN REACH, BED ALARM ON FOR SAFETY. HOURLY ROUNDING IN PROGRESS, WILL CONTINUE TO MONITOR.
[2021-04-24 07:40] VITALS: BP 140/70
[2021-04-24 19:51] VITALS: BP 123/58
--- NOTE | 2021-04-25 05:34 | NUR ---
ASSUMED PT CARE AT 193O. PT ALERT AND ORIENTED X4, POLITE AND COOPERATIVE WITH CARES. PT UP TO BATHROOM WITH MIN ASSIST, GAIT BELT AND WALKER TO VOID. NO STOOL THIS SHIFT. PRN PAIN MEDICATION AT HS. NO 02 REQUIRED OVERNIGHT. CALL LIGHT IN REACH, BED ALARM ON FOR SAFETY. HOURLY ROUNDING IN PROGRESS, WILL CONTINUE TO MONITOR.
[2021-04-25 07:00] VITALS: BP 147/57
[2021-04-25 19:00] VITALS: BP 123/63
--- NOTE | 2021-04-26 05:10 | NUR ---
ASSUMED CARE AT 1920. ALERT AND ORIENTED. PLEASANT. NORCO GIVEN FOR BACK PAIN. BHARGAVI IN RM WITH WALKER. SLEPT WELL. CALL LIGHT IN REACH.
[2021-04-26 07:42] VITALS: BP 126/71
[2021-04-26 09:28] VITALS: BP 126/71
[2021-04-26] MEDS ORDERED: PROTONIX40 M2 PO (12:44)
[2021-04-26] MEDS ORDERED: NORCO5 PO (12:51)
[2021-04-26 12:59] VITALS: BP 126/71
--- NOTE | 2021-04-26 14:14 | NUR ---
TEAM CONFRENCE MEETING HELD THIS WEEK. PLAN FOR PT TO D/C HOME WITH HH TODAY. PT ACCEPTS HH WITH [facility]. CM WILL REMAIN AVAILABLE TO ASSIST AND FOLLOW NEEDED. [facility] PHONE: [phone] FAX: [phone]
== END 2021-04-26 15:13 | disposition home health service (06) | DRG 551 ==
LOC: M.REH 15:11
PROVIDERS: ADMIT Physical Medicine & Rehabilitation; ATTEND Physical Medicine & Rehabilitation
DX: S32.049A Unspecified fracture of fourth lumbar vertebra, initial encounter for closed fracture (principal); J18.9 Pneumonia, unspecified organism; I48.20 Chronic atrial fibrillation, unspecified; J44.0 Chronic obstructive pulmonary disease with (acute) lower respiratory infection; M19.90 Unspecified osteoarthritis, unspecified site; I10 Essential (primary) hypertension; W18.39XA Other fall on same level, initial encounter; I48.91 Unspecified atrial fibrillation; Z96.643 Presence of artificial hip joint, bilateral; Z96.611 Presence of right artificial shoulder joint; Z95.2 Presence of prosthetic heart valve; Z87.891 Personal history of nicotine dependence; Y93.89 Activity, other specified; Y92.89 Other specified places as the place of occurrence of the external cause; Y99.8 Other external cause status